=== PATIENT | female | born 1970 | race Two or more races ===

== ENCOUNTER 2018-01-17 09:19 | Outpatient (CLI) | payer OTHER | END 2018-01-17 09:25 | disposition home or self-care (01) | LOC: SONOGRAMA 09:19 | DX: E04.2 Nontoxic multinodular goiter (principal) ==

== ENCOUNTER 2019-02-05 05:33 | Day surgery (SDC) | payer OTHER ==
[~2019-02-05 05:33] MED LIST: SYNTHROID50 MCG PO; SYNTHROID75 MCG; SYNTHROID75 MCG PO
== END 2019-02-05 12:45 | disposition home or self-care (01) ==
LOC: CIR.AMB 05:33
DX: N84.0 Polyp of corpus uteri (principal)

== ENCOUNTER 2023-11-29 10:47 | Outpatient (CLI) | payer OTHER | END 2023-11-29 10:50 | disposition home or self-care (01) | LOC: SONOGRAMA 10:47 | PROVIDERS: ATTEND Pathology Anatomic Pathology & Clinical Pathology | DX: D44.0 Neoplasm of uncertain behavior of thyroid gland (principal); E04.1 Nontoxic single thyroid nodule ==